=== PATIENT | female | born 1950 | race Native Hawaiian/Other Pacific Islander ===

== ENCOUNTER → 2018-09-29 09:08 | Outpatient (CLI) | payer MEDICARE, SELFPAY ==
--- NOTE | 2018-09-29 09:16 | XR_ITS ---
XR DEXA axial skeleton COMPARISON: None HISTORY: The patient is postmenopausal TECHNIQUE: DEXA scanning lumbar spine and bilateral hips FINDINGS: The average BMD L1-L4 is 0.731 g/sq cm and the T score is -3.7. The total BMD right hip is 0.664 g centimeters squared with a T score of -2.7. The right femoral neck is 0.607 g/sq cm the T score -3.1. The total BMD left hip is 0.690 g centimeters square with T score -2.5. The left femoral neck is 0.625 g/sq cm the T score of -2.0. IMPRESSION: T score is in the osteoporosis range for lumbar spine and bilateral hips and since is the baseline study and in view of the T score numbers recommend the patient return for follow-up DEXA scan in one year to assess response to treatment
== END ==
PROVIDERS: PCP Family Medicine; Visit Provider Family Medicine
DX: M81.0 Age-related osteoporosis without current pathological fracture (principal)
CPT/HCPCS: 77080

== ENCOUNTER 2018-10-10 09:30 | Outpatient (CLI) | payer MEDICARE, SELFPAY ==
[2018-10-10 09:40] VITALS: BP 131/90; PULSE 87; RESP 18; TEMP 36.6; O2SAT 98
[2018-10-10 10:10] VITALS: BP 132/75; PULSE 72; RESP 18; TEMP 36.7; O2SAT 98
== END 2018-10-10 10:10 | disposition home or self-care (01) ==
LOC: INF 09:31
PROVIDERS: Visit Provider Family Medicine
DX: M81.0 Age-related osteoporosis without current pathological fracture (principal)
CPT/HCPCS: 96372; J0897

== ENCOUNTER 2019-04-11 09:43 | Outpatient (CLI) | payer MEDICARE, SELFPAY ==
[2019-04-11 09:50] VITALS: BP 141/70; PULSE 75; RESP 18; O2SAT 99
== END 2019-04-11 09:50 | disposition home or self-care (01) ==
LOC: INF 09:43
PROVIDERS: Visit Provider Nurse Practitioner Family
DX: M81.0 Age-related osteoporosis without current pathological fracture (principal)
CPT/HCPCS: 96372; J0897

== ENCOUNTER 2019-10-15 10:07 | Outpatient (CLI) | payer MEDICARE, SELFPAY ==
[2019-10-15 10:33] VITALS: BP 122/69; PULSE 68; RESP 18; TEMP 36.4; O2SAT 99
== END 2019-10-15 11:03 | disposition home or self-care (01) ==
LOC: INF 10:07
PROVIDERS: Visit Provider Nurse Practitioner Family
DX: M81.0 Age-related osteoporosis without current pathological fracture (principal)
CPT/HCPCS: 96372; J0897

== ENCOUNTER → 2019-11-30 11:50 | Outpatient (CLI) | payer MEDICARE, SELFPAY ==
--- NOTE | 2019-11-30 11:58 | XR_ITS ---
PROCEDURE: XR HIP RT 2-3V W/PELVIS CLINICAL INDICATION: PAIN IN R HIP Recent fall COMPARISON: CT ABDPELW/O CT ABD PELVIS W/O CONTRAST from 08/05/2014 FINDINGS: No fracture or dislocation is evident. No significant degenerative change. No lytic or blastic change. Unremarkable soft tissues. The SI joints and symphysis pubis are normal. IMPRESSION: No acute findings. Dictated Dr. Sumit Gomez MD 11/30/2019 12:44 Dr. Sumit Woodson MD in [place] 11/30/2019 12:44
== END ==
PROVIDERS: PCP Family Medicine; Visit Provider Family Medicine
DX: M25.551 Pain in right hip (principal)
CPT/HCPCS: 73502

== ENCOUNTER → 2019-12-10 10:21 | Outpatient (CLI) | payer MEDICARE, SELFPAY ==
--- NOTE | 2019-12-10 10:27 | XR_ITS ---
PROCEDURE: XR DEXA AXIAL SKELETON CLINICAL HISTORY: OSTEOPROSIS COMPARISON: CR DXA Exam from 09/29/2018 FINDINGS: The right hip BMD is 0.577 with a t-score of -2.5. The left hip BMD is 0.552 with a t-score of -2.7. The lumbar spine BMD is 0.714 with a t-score of -3.0. Previously the left femoral neck T-score was -3.0, right femoral neck T-score -3.1 and L1-L4 T-score -3.7. The bone mineral density has somewhat improved compared to the previous exam IMPRESSION: This patient is considered osteoporotic according to the World Health Organization criteria. Fracture risk is high. Treatment is advised. Based on these results of follow-up exam is recommended in 1 year Dictated by: Mark Cartwright MD 12/11/2019 09:05 Mark Cartwright MD in [place] 12/11/2019 09:05
== END ==
PROVIDERS: PCP Family Medicine; Visit Provider Family Medicine
DX: M81.0 Age-related osteoporosis without current pathological fracture (principal)
CPT/HCPCS: 77080

== ENCOUNTER 2020-04-21 10:15 | Outpatient (CLI) | payer MEDICARE, SELFPAY ==
[2020-04-21 10:23] VITALS: BP 122/61; PULSE 76; RESP 18; TEMP 36.6; O2SAT 100
== END 2020-04-21 10:36 | disposition home or self-care (01) ==
LOC: INF 10:15
PROVIDERS: Visit Provider Nurse Practitioner Family
DX: M81.0 Age-related osteoporosis without current pathological fracture (principal)
CPT/HCPCS: 96372; J0897

== ENCOUNTER → 2020-10-20 08:20 | Outpatient (CLI) | payer MEDICARE, SELFPAY ==
--- NOTE | 2020-10-20 08:24 | CT_ITS ---
PROCEDURE: CT ABDOMEN PELVIS WO CON CLINICAL INDICATION: RLQ PAIN More pain after eating COMPARISON: CT ABDPELW/O CT ABD PELVIS W/O CONTRAST from 08/05/2014 TECHNIQUE: Axial images obtained with sagittal and coronal reformats. All CT scans at the facility use one or more dose reduction, viz: automated exposure control, ma/kV adjustment per patient size (including targeted exams where dose is matched to indication, i.e. head), or iterative reconstruction technique. FINDINGS: LOWER THORAX: No acute finding ABDOMEN & PELVIS: Hyperdensity noted in the region of the gallbladder fossa and could represent a skate stones from the prior cholecystectomy or postsurgical material. Dystrophic calcification is also consideration. This is not significantly changed. No focal liver lesion is evident. The liver margin is slightly irregular raising the question mild cirrhosis. Please correlate with history and laboratory values. No focal liver lesion is apparent. The spleen and adrenal glands and pancreas have unremarkable unenhanced appearance. No renal or ureteral calculi. No intestinal obstruction or free air. There is a mild amount of retained colonic feces throughout the colon. The appendix is mildly prominent at 7 mm however, this is not significantly changed. No evidence of stranding of the periappendiceal fat. There is colonic diverticulosis of the descending and sigmoid colon. No evidence of diverticulitis. No obvious pelvic mass or abnormal fluid collection. There is been development of wedge compression changes involving the L2 vertebral body with loss of height anteriorly of approximately 40 percent with spurring of the vertebral body anteriorly and inferiorly and minimal retropulsion/spurring of the posterior inferior aspect of the L2 vertebral body by 3 mm. IMPRESSION: 1. Prior cholecystectomy with hyperdensity in the gallbladder fossa unchanged. 2. Minimal irregularity of the liver margin anteriorly raising the question of mild or early cirrhosis. 3. No evidence of appendicitis. 4. Colonic diverticulosis without diverticulitis. 5. Interval development of compression change of L2 Dictated by: Mark Cartwright MD 10/21/2020 10:22 Mark Cartwright MD in [place] 10/21/2020 10:22
== END ==
PROVIDERS: PCP Family Medicine; Visit Provider Family Medicine
DX: R10.31 Right lower quadrant pain (principal)
CPT/HCPCS: 74176

== ENCOUNTER 2020-10-20 08:45 | Outpatient (CLI) | payer MEDICARE, SELFPAY ==
[2020-10-20 08:59] VITALS: BP 122/71; PULSE 68; RESP 18; TEMP 36.6; O2SAT 99
== END 2020-10-20 09:20 | disposition home or self-care (01) ==
LOC: INF 08:45
PROVIDERS: Visit Provider Family Medicine
DX: M81.0 Age-related osteoporosis without current pathological fracture (principal); R10.31 Right lower quadrant pain
CPT/HCPCS: 74176; 96372; J0897

== ENCOUNTER 2021-04-27 09:05 | Outpatient (CLI) | payer MEDICARE, SELFPAY ==
[2021-04-27 09:20] VITALS: BP 142/82; PULSE 88; RESP 16; TEMP 36.6; O2SAT 100
== END 2021-04-27 09:42 | disposition home or self-care (01) ==
LOC: INF 09:07
PROVIDERS: PCP Family Medicine; Visit Provider Family Medicine
DX: M81.0 Age-related osteoporosis without current pathological fracture (principal)
CPT/HCPCS: 96372; J0897

== ENCOUNTER 2021-11-02 08:35 | Outpatient (CLI) | payer MEDICARE, SELFPAY ==
[2021-11-02 08:43] VITALS: BP 134/74; PULSE 71; RESP 18; TEMP 37; O2SAT 99
== END 2021-11-02 08:50 | disposition home or self-care (01) ==
LOC: INF 08:36
PROVIDERS: PCP Family Medicine; Visit Provider Family Medicine
DX: M81.0 Age-related osteoporosis without current pathological fracture (principal)
CPT/HCPCS: 96372; J0897

== ENCOUNTER 2022-02-25 23:04 | Inpatient (IN) | payer MEDICARE, SELFPAY ==
[2022-02-25 23:04] VITALS: BP 167/79; PULSE 137; RESP 22; TEMP 36.5; O2SAT 99; BMI 20.3
[2022-02-25 23:15] LABS: Basophils # 0.1 K/mm3 (0-0.2); Basophils % 0.4 % (0.1-2.0); Eosinophils % 0.2 % (0.1-12.0); Hematocrit 53.7 % (37.0-47.0); Lymphocytes # 0.9 K/mm3 (0.7-4.5); Lymphocytes % 4.4 % (10-50); Mean Corpuscular HGB Conc 29.8 g/dL (31.8-35.4); Mean Corpuscular Hemoglobin 29.7 pg (27.0-31.2); Mean Corpuscular Volume 99.6 fl (81-99); Mean Platelet Volume 9.9 fl (7.4-10.4); Monocytes # 0.9 K/mm3 (0.1-1.0); Monocytes % 4.4 % (1.7-9.3); Neutrophils # 17.9 K/mm3 (1.8-7.8); Neutrophils % 90.6 % (37.0-80.0); Platelet Count 316 K/mm3 (142-424); Red Blood Count 5.39 M/mm3 (4.20-5.40); White Blood Count 19.7 K/mm3 (4.8-10.8)
[2022-02-25 23:16] LABS: Chloride 108 mmol/L (98-107)
--- NOTE | 2022-02-25 23:16 | HMH.EDGENADL ---
Discharge Plan Disposition Patient Disposition: Admitted as Observation Chief Complaint: Hyper/Hypoglycemia Clinical Impressions Clinical Impression: DKA (diabetic ketoacidosis), Sepsis Discharge ED Provider: Taylor Murdock Adult HPI General Chief complaint: Hyper/Hypoglycemia Stated complaint: Hyperglycemia Time Seen by Provider: 02/25/22 23:04 Mode of Arrival: EMS Source of Information: Patient and EMS Limitations: No Limitations Description of Symptoms (Recalled from ER Triage Doc. by RN): EMs called out to check pt;s sugar. states pt been n/v and losing weight for 2 weeks and seen pcp today and diganosed with diabetes and started new meds History of Present Illness HPI narrative: Mrs. Ibanez is a 71-year-old female past medical history for newly diagnosed T2DM presenting to the emergency department for altered mental status and lethargy. History provided by patient's at bedside. Patient has had 2 weeks of nausea, vomiting and weight loss. Patient was evaluated by her primary care physician earlier today and diagnosed with new onset diabetes. Patient was initiated on glipizide/metformin as well as Zofran. Following administration of these medications patient reportedly had hallucinations and worsening confusion prompting EMS to be called. EMS arrived to scene and reported patient sure 500+. Patient was hemodynamically stable and transferred to [facility] for further evaluation. On arrival patient is alert and oriented to name and place but has generalized weakness and appears lethargic. Patient is moving all extremities. She reports neck as well as abdominal pain. MD complaint: lethargy and confusion Related Data Home Medications Medication Instructions Recorded Confirmed calcium carbonate 500 mg calcium 500 mg PO TID Supplement 10/10/18 02/26/22 (1,250 mg) tablet glucosamine sulfate 2KCl 1,000 mg 1,000 mg PO DAILY Supplement 10/10/18 02/26/22 tablet aomymwohwpgr-Ke-hkxh-minerals 1 each PO DAILY Supplement 10/15/19 02/26/22 glipizide 2.5 mg-metformin 250 mg 1 tab PO BID Diabetes 02/26/22 02/26/22 tablet mirtazapine 15 mg tablet 15 mg PO HS sleep 02/26/22 02/26/22 omeprazole 40 mg capsule,delayed 40 mg PO DAILY GERD 02/26/22 02/26/22 release Allergies Allergy/AdvReac Type Severity Reaction Status Date / Time No Known Allergies Allergy Verified 10/20/20 09:28 [facility] Social History Smoking Status: Never smoker alcohol intake: never current occupational status: unemployed Travel in the last 8 weeks: None household members: family housing: house caffeine: Yes ROS Obtained: Yes All systems reviewed & no additional complaints except as documented Physical Exam General General appearance: alert, lethargic and obtunded Head Head exam: atraumatic and normal inspection Eye Eye exam: Present normal appearance and EOMI ENT ENT exam: Present normal exam, normal oropharynx and mucous membranes moist Neck Neck exam: Present normal inspection and full ROM Chest Chest inspection: Present normal inspection and symmetric chest wall rise Respiratory Respiratory exam: Present normal lung sounds bilaterally Cardiovascular Cardiovascular exam: Present regular rate and tachycardia Abdominal Exam Abdominal exam: Present soft and tenderness Extremities Exam Extremities exam: Present normal inspection and full ROM Back Exam Back exam: Present normal inspection Neurological Exam Neurological exam: Present alert, oriented X3 and other (Generalized weakness) Skin Skin exam: Present warm and normal color Medical Decision Making Medical Records Medical records reviewed: Yes I reviewed the patient's medical records. Chris Inquiry Pt receiving controlled substance: No Vital Signs: 02/25/22 23:04 02/25/22 23:58 02/26/22 00:00 Temperature 97.7 F Temperature Source Oral Pulse Rate Pulse Rate [Ri
--- NOTE | 2022-02-25 23:16 | PC.NURSE ---
RT at to obtain ABG
[2022-02-25 23:17] LABS: Coronavirus 19, PCR Not Detected (NotDetected); Influenza A, PCR Not Detected (NotDetected); Influenza B, PCR Not Detected (NotDetected)
[2022-02-25 23:17] LABS: Potassium 4.9 mmoL/L (3.5-5.1); Sodium 147 mmol/L (136-145)
[2022-02-25 23:19] LABS: Alanine Aminotransferase 28 U/L (12-78); Aspartate Amino Transferase 33 U/L (14-36); Blood Urea Nitrogen 21 mg/dl (7-17); Creatinine Clearance Estimated 36 mL/min (50-200); Estimated Glomerular Filt Rate 40 ml/min (>60); GFR (African American) 49 ML/MIN (>60)
[2022-02-25 23:20] LABS: Albumin Level 5.1 g/dl (3.5-5.0); Albumin/Globulin Ratio 1.4 (1.1-1.8); Alkaline Phosphatase 140 U/L (38-126); Bilirubin,Total 0.6 mg/dl (0.2-1.3); Calcium 10.3 mg/dl (8.4-10.2); Globulin 3.6 g/dL (1.3-3.2); Total Protein,Serum 8.7 g/dl (6.3-8.2)
[2022-02-25 23:21] LABS: Acetone, Serum (Rapid) Small (None Detect); MANUAL DIFFERENTIAL MANUAL DIFFERENTIAL (MANUAL DIFF)
[2022-02-25 23:25] LABS: ABG Base Excess -27.1 mmol/L (-2.4-2.3); ABG HCO3 3.3 mmhg (22.0-26.0); ABG Oxygen Saturation 98 % (90-100); ABG TCO2 3.6 mmhg (23-27)
[2022-02-25 23:26] LABS: Allen's Test Acceptable; Oxygen 21 %; Source Right Radial
[2022-02-25 23:27] LABS: ABG PH 7.05 mmol/L (7.35-7.45)
[2022-02-25 23:32] LABS: Troponin I 0.02 ng/ml (0.00-0.034)
[2022-02-25 23:40] LABS: Glucose 615 mg/dl (74-100)
--- NOTE | 2022-02-25 23:42 | PC.NURSE ---
notified of critical glucose 616
[2022-02-25 23:50] LABS: Anion Gap 38.9 mEq/L (5-15); Carbon Dioxide < 5 mmol/L (22.0-30.0)
[2022-02-25 23:51] LABS: Thyroid Stimulating Hormone 2.17 uIU/mL (0.465-4.68)
--- NOTE | 2022-02-25 23:52 | PC.NURSE ---
Critical lab of CO2 <[address] Murdock
[2022-02-25 23:58] VITALS: BP 152/61; RESP 34; O2SAT 94
[2022-02-25 23:59] LABS: Microscopic, Urine URINE MICROSCOPIC (MICROSCOPIC)
[2022-02-26] VITALS (42 sets, daily range): BP systolic 54–155; BP diastolic 36–81; PULSE 76–148; RESP 12–33; TEMP 36.5–37.1; O2SAT 93–100; BMI 18.7
--- NOTE | 2022-02-26 | CT_ITS ---
PROCEDURE INFORMATION: Exam: CT Abdomen And Pelvis With Contrast Exam date and time: 02/26/2022 12:18 AM Age: 71 years old Clinical indication: Vomiting; Additional info: Lack of appetitie emesis TECHNIQUE: Imaging protocol: Computed tomography of the abdomen and pelvis with contrast. Radiation optimization: All CT scans at this facility use at least one of these dose optimization techniques: automated exposure control; mA and/or kV adjustment per patient size (includes targeted exams where dose is matched to clinical indication); or iterative reconstruction. Contrast material: ISOVUE; Contrast volume: 75 ml; Contrast route: IV; COMPARISON: CT ABDOMEN PELVIS WO CON 10/20/2020 8:29 AM FINDINGS: Liver: Normal. Gallbladder and bile ducts: Gallbladder surgically absent. Persistent hyperdense material within the gallbladder fossa, possibly postsurgical material versus retained calculi, unchanged. Pancreas: Normal. Spleen: Normal. Adrenal glands: Normal. No mass. Kidneys and ureters: Normal. Stomach and bowel: Colonic diverticulosis. Moderate amount of stool throughout the colon, suggesting constipation. No obstruction. Mild wall thickening of the gastric body and antrum, with minimal adjacent fat stranding, possibly mild gastritis. Appendix: Appendix normal. Intraperitoneal space: Unremarkable. No free air. No significant fluid collection. Vasculature: Unremarkable. No abdominal aortic aneurysm. Lymph nodes: Unremarkable. No enlarged lymph nodes. Urinary bladder: Urinary bladder decompressed by [place] catheter. Reproductive: Unremarkable as visualized. Bones/joints: Sacral Tarlov cysts. Soft tissues: Normal. IMPRESSION: 1. Moderate amount of stool throughout the colon, suggesting constipation. No obstruction. 2. Mild wall thickening of the gastric body and antrum, with minimal adjacent fat stranding, possibly mild gastritis.
--- NOTE | 2022-02-26 | CT_ITS ---
PROCEDURE INFORMATION: Exam: CT Head Without Contrast Exam date and time: 02/26/2022 12:05 AM Age: 71 years old Clinical indication: Altered mental status/memory loss; Other: Hallucinations TECHNIQUE: Imaging protocol: Computed tomography of the head without contrast. Radiation optimization: All CT scans at this facility use at least one of these dose optimization techniques: automated exposure control; mA and/or kV adjustment per patient size (includes targeted exams where dose is matched to clinical indication); or iterative reconstruction. COMPARISON: No relevant prior studies available. FINDINGS: Brain: Mild diffuse cerebral atrophy is consistent with this patient's age. The visualized basilar cisterns are patent. The cortical/white matter interfaces are preserved throughout the brain. There is no evidence of mass, mass effect or midline shift. There is no evidence of acute hemorrhage within the brain parenchyma or the subarachnoid space. There is mild heterogeneity and patchy areas of bilateral decreased attenuation of the white matter consistent with chronic white matter ischemic change. Cerebral ventricles: No ventriculomegaly. Paranasal sinuses: The visualized portions of the sinuses are clear. Mastoid air cells: The mastoid sinuses are normal. Orbital cavities: The orbits are normal. Bones/joints: Postsurgical hardware streak artifact within the maxilla limits evaluation of adjacent structures. Soft tissues: No significant soft tissue edema. IMPRESSION: No acute intracranial abnormality.
--- NOTE | 2022-02-26 | CT_ITS ---
PROCEDURE INFORMATION: Exam: CT Chest With Contrast; Diagnostic Exam date and time: 02/26/2022 12:18 AM Age: 71 years old Clinical indication: Condition or disease; Other: Hyperglycemia, leukocytosis TECHNIQUE: Imaging protocol: Diagnostic computed tomography of the chest with contrast. Radiation optimization: All CT scans at this facility use at least one of these dose optimization techniques: automated exposure control; mA and/or kV adjustment per patient size (includes targeted exams where dose is matched to clinical indication); or iterative reconstruction. Contrast material: ISOVUE; Contrast volume: 75 ml; Contrast route: IV; COMPARISON: CT ABDOMEN PELVIS WO CON 10/20/2020 8:29 AM FINDINGS: Lungs: Calcified granuloma within the left upper lobe. Pleural spaces: Unremarkable. No pneumothorax. No pleural effusion. Heart: Mild three-vessel coronary artery atherosclerotic disease. Lymph nodes: No pathologically-enlarged lymph nodes. Vasculature: Atherosclerotic disease of the thoracic aorta, without aneurysm or dissection. Diaphragm: Small-sized hiatal hernia. Bones/joints: Multilevel thoracic spine degenerative disc space narrowing and osteophyte formation. Soft tissues: Normal. IMPRESSION: No acute thoracic abnormality.
[2022-02-26 00:02] LABS: Lactic Acid 4.8 mmol/L (0.7-2.1)
--- NOTE | 2022-02-26 00:02 | PC.NURSE ---
notified of lactic 4.8
[2022-02-26 00:06] LABS: Appearance,Urine CLEAR (Clear); Bilirubin,Urine Negative (Negative); Blood, Urine 2+ (Negative); Color,Urine YELLOW (Yellow); Glucose,Urine (UA) 3+ (Negative); Ketones,Urine 3+ (Negative); Leukocyte Esterase,Urine Negative (Negative); Nitrate,Urine Negative (Negative); Protein,Urine 2+ (Negative); Specific Gravity, Urine >= 1.030 (1.005-1.030); Urobilinogen,Urine 0.2 EU/dl (0.2)
[2022-02-26 00:14] LABS: Barbiturates Screen,Urine Negative ng/ml (<200)
[2022-02-26 00:15] LABS: Benzodiazepines Screen,Urine Negative ng/ml (<200)
--- NOTE | 2022-02-26 00:15 | PC.NURSE ---
Pt going to scan at this time
[2022-02-26 00:16] LABS: Amphetamine/Metha Screen,Urine Negative ng/ml (<1000); Cannabinoid Screen,Urine Negative ng/ml (<50)
[2022-02-26 00:17] LABS: Cocaine Screen,Urine Negative ng/ml (<300)
[2022-02-26 00:18] LABS: Methadone Screen,Urine Negative ng/ml (<300); Opiate Screen,Urine Negative ng/ml (<300)
[2022-02-26 00:19] LABS: Phencyclidine Screen,Urine Negative ng/ml (<25)
[2022-02-26 00:43] LABS: Bacteria,Urine Trace /lpf; Squamous Epithelial Cell,Urine Occasional #/hpf (0-5); WBC,Urine Occasional #/hpf (0-3)
[2022-02-26 00:49] LABS: Acanthocytes 1+; Lymphocytes % 11 % (10-50); Macrocytosis 1+; Neutrophils % 89 % (42-76); Platelet Estimate Normal; Total Cells Counted 100
--- NOTE | 2022-02-26 01:15 | ECG_ITS ---
APPROVED REPORT Exam: Resting ECG HR:134 bpm ECG Measurements Heart Rate 134 AXES WY 152 P 82 QRSd 62 QRS 42 QT 331 T 73 QTc 410 Conclusion SINUS TACHYCARDIA LOW QRS VOLTAGE [QRS DEFLECTION < 0.5/1.0 mV IN LIMB/CHEST LEADS] NONSPECIFIC ST & T-WAVE ABNORMALITY ABNORMAL ECG UNCONFIRMED REPORT Electronically signed by : Golden Gonsales MD 02/26/2022 13:27:53
[2022-02-26 01:22] LABS: POC Glucose,Bedside 427 (70-110)
--- NOTE | 2022-02-26 01:22 | PC.NURSE ---
Mouth swabs used to perform oral care for pt
--- NOTE | 2022-02-26 01:26 | PC.NURSE ---
pt updated at bedside and made aware of pt condition
--- NOTE | 2022-02-26 01:44 | PC.NURSE ---
Dr. Murdock speaking with Dr. Shahid
--- NOTE | 2022-02-26 02:06 | PC.NURSE ---
Called RT for repeat ABG
[2022-02-26 02:21] LABS: ABG Base Excess -25.6 mmol/L (-2.4-2.3); ABG HCO3 4.7 mmhg (22.0-26.0); ABG Oxygen Saturation 99 % (90-100); ABG PO2 128.5 mmhg (80-100); ABG TCO2 5.2 mmhg (23-27); Allen's Test Acceptable; Source Right Radial
[2022-02-26 02:22] LABS: ABG PCO2 16.6 mmhg (35.0-45.0); ABG PH 7.07 mmol/L (7.35-7.45)
--- NOTE | 2022-02-26 02:39 | PC.NURSE ---
epi up to 5mccg bp 52/28 map 36
[2022-02-26 02:48] LABS: Troponin I 0.03 ng/ml (0.00-0.034)
[2022-02-26 03:24] LABS: POC Glucose,Bedside 363 (70-110)
--- NOTE | 2022-02-26 03:34 | ECG_ITS ---
APPROVED REPORT Exam: Resting ECG HR:135 bpm ECG Measurements Heart Rate [address] 134 P 73 QRSd 73 QRS 56 QT 331 T 81 QTc 410 Conclusion SINUS TACHYCARDIA NONSPECIFIC ST & T-WAVE ABNORMALITY ABNORMAL RHYTHM ECG UNCONFIRMED REPORT Electronically signed by : Golden Gonsales MD 02/27/2022 08:43:01
[2022-02-26 03:46] LABS: Reflex Lactic Add Lactic Reflex
--- NOTE | 2022-02-26 03:51 | PC.NURSE ---
PT ARRIVED WITH MAIRAER @ 4600
[2022-02-26 03:55] LABS: Chloride 119 mmol/L (98-107)
[2022-02-26 03:59] LABS: Blood Urea Nitrogen 20 mg/dl (7-17); Creatinine Clearance Estimated 47 mL/min (50-200); Estimated Glomerular Filt Rate 62 ml/min (>60); GFR (African American) 74 ML/MIN (>60); Glucose 341 mg/dl (74-100)
--- NOTE | 2022-02-26 04:01 | PC.NURSE ---
titrated to 4mcg bp 137/71 map 93
--- NOTE | 2022-02-26 04:15 | PC.NURSE ---
pt transported from er via stretcher accompanied by rn and pct with monitors in place, pt tolerated well, no skin issues noted, epinephrine drip infusing at 4mcg/min in right ac IV line, insulin drip infusing at 6 units/hr to left wrist IV, 1000ml of NS bolus infusing to gravity to left AC iv, pt responsive to name and able to speak name, pt is lao speaking at times, no acute distress at this time, f/c to bsd with clear yellow urine noted.
[2022-02-26 04:23] LABS: Carbon Dioxide 8 mmol/L (22.0-30.0); Sodium 154 mmol/L (136-145)
--- NOTE | 2022-02-26 04:30 | PC.NURSE ---
Difficult to complete admission d/t patients altered mental status at this time. Most of the hx was obtained from ED staff by the , who is not present on admission. Notified primary RN
--- NOTE | 2022-02-26 04:37 | PC.NURSE ---
0437 critical labs called to Dr. Grey lactic 5.0, sodium 154, potassium 3.0, co2 8.0; note orders to give potassium with next saline bag bolus, verified with pharmacy potassium cannot be ran as bolus, ns w/40meq of kcl started per insulin protocol at 125ml/hr per telephone orders dr grey repeated and verified
[2022-02-26 05:30] LABS: Reflex Lactic (2 hrs) Add Lactic Reflex
[2022-02-26 06:38] LABS: Lactic Acid Follow up (RFLX 2) 5.4 mmol/L (0.7-2.1)
--- NOTE | 2022-02-26 07:02 | PC.NURSE ---
epi increased to 2mcg/min for b/p 88/48
[2022-02-26 08:12] LABS: Acetone, Serum (Rapid) Large (None Detect)
--- NOTE | 2022-02-26 08:19 | EXP.PHA.CONS ---
Pharmacy Consult Date: 02/26/22 Time: 08:19 Referring provider: DR. CROCKER Reason for Consult:: VANCOMYCIN DOSING Allergies Allergy/AdvReac Type Severity Reaction Status Date / Time No Known Allergies Allergy Verified 02/26/22 06:11 Home Medications Medication Instructions Recorded Confirmed Type calcium carbonate 500 mg calcium 500 mg PO TID Supplement 10/10/18 02/26/22 History (1,250 mg) tablet glucosamine sulfate 2KCl 1,000 mg 1,000 mg PO DAILY Supplement 10/10/18 02/26/22 History tablet tsmqwyqbsbzk-Ja-fzkb-minerals 1 each PO DAILY Supplement 10/15/19 02/26/22 History glipizide 2.5 mg-metformin 250 mg 1 tab PO BID Diabetes 02/26/22 02/26/22 History tablet mirtazapine 15 mg tablet 15 mg PO HS sleep 02/26/22 02/26/22 History omeprazole 40 mg capsule,delayed 40 mg PO DAILY GERD 02/26/22 02/26/22 History release New Prescriptions to Start Prescriptions: Height: 1.7 m Weight: 54.2 kg Laboratory Results:: Laboratory Results - last 24 hr 02/25/22 23:06: WBC 19.7 H, RBC 5.39, Hgb 16.0, Hct 53.7 H, MCV 99.6 H, MCH 29.7, MCHC 29.8 L, RDW 15.0, Plt Count 316, MPV 9.9, Neut % (Auto) 90.6 H, Lymph % (Auto) 4.4 L, [place] % (Auto) 4.4, Eos % (Auto) 0.2, Baso % (Auto) 0.4, Neut # (Auto) 17.9 H, Lymph # (Auto) 0.9, [place] # (Auto) 0.9, Eos # (Auto) 0.0, Baso # (Auto) 0.1, Total Counted 100, Neutrophils % (Manual) 89 H, Lymphocytes % (Manual) 11, Platelet Estimate Normal, RBC Morphology Not Reportable, Macrocytosis 1+, Acanthocytes (Spur) 1+ 02/25/22 23:06: Sodium 147 H, Potassium 4.9, Chloride 108 H, Carbon Dioxide < 5 L*, Anion Gap 38.9 H, BUN 21 H, Creatinine 1.30 H, Estimated Creat Clear 36, Estimated GFR 40 L, Est GFR ( Amer) 49 L, Glucose 615 H*, Calcium 10.3 H, Total Bilirubin 0.6, AST 33, ALT 28, Alkaline Phosphatase 140 H, Troponin I 0.02, Total Protein 8.7 H, Albumin 5.1 H, Globulin 3.6 H, Albumin/Globulin Ratio 1.4, TSH 2.17, Acetone Level Small 02/25/22 23:07: SARS-CoV-2 (PCR) Not detected, Influenza A Untype (PCR) Not detected, Influenza Type B (PCR) Not detected 02/25/22 23:09: Specimen Source Right radial, O2 % 21, ABG pH 7.05 L*, ABG pCO2 12.0 L, ABG pO2 129.0 H, ABG HCO3 3.3 L, ABG Total CO2 3.6 L, ABG O2 Saturation 98, ABG Base Excess -27.1 L, Mark Test Acceptable 02/25/22 23:45: Lactate 4.8 H 02/25/22 23:54: Urine Color Yellow, Urine Appearance Clear, Urine pH 6.0, Ur Specific [place] >= 1.030, Urine Protein 2+, Urine Glucose (UA) 3+, Urine Ketones 3+, Urine Blood 2+, Urine Nitrate Negative, Urine Bilirubin Negative, Urine Urobilinogen 0.2, Ur Leukocyte Esterase Negative, Urine RBC 3-5, Urine WBC Occasional, Ur Squamous Epith Cells Occasional, Urine Bacteria Trace 02/25/22 23:54: Urine Opiates Screen Negative, Urine Methadone Screen Negative, Ur Barbituates Screen Negative, Ur Phencyclidine Scrn Negative, Ur Amphetamines Screen Negative, U Benzodiazepines Scrn Negative, Urine Cocaine Screen Negative, U Marijuana (THC) Screen Negative 02/26/22 01:08: POC Glucose 427 H* 02/26/22 02:06: Specimen Source Right radial, O2 % 1lpm, ABG pH 7.07 L*, ABG pCO2 16.6 L, ABG pO2 128.5 H, ABG HCO3 4.7 L, ABG Total CO2 5.2 L, ABG O2 Saturation 99, ABG Base Excess -25.6 L, Mark Test Acceptable 02/26/22 02:22: Troponin I 0.03 02/26/22 03:16: POC Glucose 363 H* 02/26/22 03:42: Sodium 154 H*, Potassium 3.0 L D, Chloride 119 H, Carbon Dioxide 8 L* D, Anion Gap 30.0 H, BUN 20 H, Creatinine 0.90 D, Estimated Creat Clear 47, Estimated GFR 62, Est GFR ( Amer) 74 D, Glucose 341 H D, Calcium 8.0 L 02/26/22 03:42: Lactate 5.0 H 02/26/22 05:45: Acetone Level Large 02/26/22 05:45: Lactate 5.4 H Medical History: Medical History (Updated 02/26/22 @ 06:11 by Jolanta Vasquez RN) Diabetes mellitus, type 2 Assessment and Plan Assessment and plan all Dx Assessment and Plan for all problems:: Pharmacokinetic dosing service Age: 71 yo Serum creatinine: 1 mg/dL Height: 66.9 Inches Weight (kg): 54.2 Assessme
[2022-02-26 08:21] LABS: Anion Gap 17.2 mEq/L (5-15); Blood Urea Nitrogen 19 mg/dl (7-17); Calcium 7.9 mg/dl (8.4-10.2); Carbon Dioxide 16 mmol/L (22.0-30.0); Chloride 125 mmol/L (98-107); Creatinine Clearance Estimated 44 mL/min (50-200); Estimated Glomerular Filt Rate 82 ml/min (>60); GFR (African American) 100 ML/MIN (>60); Glucose 186 mg/dl (74-100); Potassium 3.2 mmoL/L (3.5-5.1)
--- NOTE | 2022-02-26 08:23 | PC.NURSE ---
0700 critical lactate was called to dr grey 5.4, no new orders noted at this time
[2022-02-26 08:28] LABS: Troponin I 0.04 ng/ml (0.00-0.034)
[2022-02-26 08:29] LABS: Sodium 155 mmol/L (136-145)
--- NOTE | 2022-02-26 08:36 | EXP.HP ---
History of Present Illness *Admission Date: 02/26/22 *Reason for visit:: Vomiting/Altered mental status *History of present illness: 71 year old patient of [facility], who saw Dr. Bran in the office earlier this week and was diagnosed with diabetes. Her blood sugar was 500 in the office that day and she was prescribed Glipizide and Metformin. She states she took one dose and started vomiting along with hallucinating and became very confused. She has had a 2 week history of nausea/vomiting and weight loss. History was obtained from ER note/patient's . [facility] Medical History (Updated 02/26/22 @ 08:52 by Iraj Shahid MD) Diabetes mellitus, type 2 Heartburn Osteoporosis Family History No significant family history Social History (Updated 02/26/22 @ 06:11 by Jolanta Vasquez, [facility]) Smoking Status: Never smoker alcohol intake: never current occupational status: unemployed Travel in the last 8 weeks: None household members: significant other and family housing: house marital status: caffeine: Yes Review of Systems Review of Systems Review of systems:: unable to obtain Meds Home Medications and Allergies Home Medications Medication Instructions Recorded Confirmed Type calcium carbonate 500 mg calcium 500 mg PO TID Supplement 10/10/18 02/26/22 History (1,250 mg) tablet glucosamine sulfate 2KCl 1,000 mg 1,000 mg PO DAILY Supplement 10/10/18 02/26/22 History tablet ridhcxaiecrr-Fg-dkhw-minerals 1 each PO DAILY Supplement 10/15/19 02/26/22 History glipizide 2.5 mg-metformin 250 mg 1 tab PO BID Diabetes 02/26/22 02/26/22 History tablet mirtazapine 15 mg tablet 15 mg PO HS sleep 02/26/22 02/26/22 History omeprazole 40 mg capsule,delayed 40 mg PO DAILY GERD 02/26/22 02/26/22 History release New Prescriptions to Start Prescriptions: Allergies Allergy/AdvReac Type Severity Reaction Status Date / Time No Known Allergies Allergy Verified 02/26/22 06:11 Exam Data for Last 24 hours Vital signs and Labs for Last 24 Hours: Temp Pulse Resp BP Pulse Ox 98.4 F 103 H 12 105/59 L 100 02/26/22 05:14 02/26/22 07:15 02/26/22 07:15 02/26/22 07:15 02/26/22 07:15 Laboratory Results - last 24 hr 02/25/22 23:06: WBC 19.7 H, RBC 5.39, Hgb 16.0, Hct 53.7 H, MCV 99.6 H, MCH 29.7, MCHC 29.8 L, RDW 15.0, Plt Count 316, MPV 9.9, Neut % (Auto) 90.6 H, Lymph % (Auto) 4.4 L, [place] % (Auto) 4.4, Eos % (Auto) 0.2, Baso % (Auto) 0.4, Neut # (Auto) 17.9 H, Lymph # (Auto) 0.9, [place] # (Auto) 0.9, Eos # (Auto) 0.0, Baso # (Auto) 0.1, Total Counted 100, Neutrophils % (Manual) 89 H, Lymphocytes % (Manual) 11, Platelet Estimate Normal, RBC Morphology Not Reportable, Macrocytosis 1+, Acanthocytes (Spur) 1+ 02/25/22 23:06: Sodium 147 H, Potassium 4.9, Chloride 108 H, Carbon Dioxide < 5 L*, Anion Gap 38.9 H, BUN 21 H, Creatinine 1.30 H, Estimated Creat Clear 36, Estimated GFR 40 L, Est GFR ( Amer) 49 L, Glucose 615 H*, Calcium 10.3 H, Total Bilirubin 0.6, AST 33, ALT 28, Alkaline Phosphatase 140 H, Troponin I 0.02, Total Protein 8.7 H, Albumin 5.1 H, Globulin 3.6 H, Albumin/Globulin Ratio 1.4, TSH 2.17, Acetone Level Small 02/25/22 23:07: SARS-CoV-2 (PCR) Not detected, Influenza A Untype (PCR) Not detected, Influenza Type B (PCR) Not detected 02/25/22 23:09: Specimen Source Right radial, O2 % 21, ABG pH 7.05 L*, ABG pCO2 12.0 L, ABG pO2 129.0 H, ABG HCO3 3.3 L, ABG Total CO2 3.6 L, ABG O2 Saturation 98, ABG Base Excess -27.1 L, Mark Test Acceptable 02/25/22 23:45: Lactate 4.8 H 02/25/22 23:54: Urine Color Yellow, Urine Appearance Clear, Urine pH 6.0, Ur Specific [place] >= 1.030, Urine Protein 2+, Urine Glucose (UA) 3+, Urine Ketones 3+, Urine Blood 2+, Urine Nitrate Negative, Urine Bilirubin Negative, Urine Urobilinogen 0.2, Ur Leukocyte Esterase Negative, Urine RBC 3-5, Urine WBC Occasional, Ur Squamous Epith Cells
[2022-02-26 08:52] LABS: POC Glucose,Bedside 291 (70-110)
[2022-02-26 08:52] LABS: POC Glucose,Bedside 209 (70-110)
[2022-02-26 08:52] LABS: POC Glucose,Bedside 165 (70-110)
[2022-02-26 08:52] LABS: POC Glucose,Bedside 248 (70-110)
[2022-02-26 11:27] LABS: POC Glucose,Bedside 116 (70-110)
[2022-02-26 11:27] LABS: POC Glucose,Bedside 113 (70-110)
[2022-02-26 11:27] LABS: POC Glucose,Bedside 107 (70-110)
[2022-02-26 12:20] LABS: Anion Gap 11.3 mEq/L (5-15); Blood Urea Nitrogen 17 mg/dl (7-17); Calcium 7.8 mg/dl (8.4-10.2); Carbon Dioxide 24 mmol/L (22.0-30.0); Chloride 123 mmol/L (98-107); Creatinine Clearance Estimated 44 mL/min (50-200); Estimated Glomerular Filt Rate 121 ml/min (>60); GFR (African American) 147 ML/MIN (>60); Glucose 121 mg/dl (74-100); Potassium 3.3 mmoL/L (3.5-5.1)
[2022-02-26 12:23] LABS: Sodium 155 mmol/L (136-145)
--- NOTE | 2022-02-26 14:10 | HMH.PHAINT1 ---
Pharmacy Intervention Comments: MEDICATION RECONCILIATION COMPLETED ON PATIENT USING EXTERNAL FILL HISTORY FROM PHARMACY AND LIST FROM [facility] OFFICE. -TROY CARVAJALD
[2022-02-26 14:11] LABS: POC Glucose,Bedside 130 (70-110)
[2022-02-26 14:11] LABS: POC Glucose,Bedside 130 (70-110)
[2022-02-26 14:11] LABS: POC Glucose,Bedside 137 (70-110)
[2022-02-26 16:00] LABS: Chloride 122 mmol/L (98-107)
[2022-02-26 16:03] LABS: Blood Urea Nitrogen 15 mg/dl (7-17); Carbon Dioxide 25 mmol/L (22.0-30.0); Creatinine Clearance Estimated 44 mL/min (50-200); Estimated Glomerular Filt Rate 121 ml/min (>60); GFR (African American) 147 ML/MIN (>60)
[2022-02-26 16:04] LABS: Calcium 7.5 mg/dl (8.4-10.2); Glucose 151 mg/dl (74-100)
[2022-02-26 16:05] LABS: Sodium 154 mmol/L (136-145)
[2022-02-26 16:10] LABS: Acetone, Serum (Rapid) None Detected (None Detect)
[2022-02-26 17:39] LABS: POC Glucose,Bedside 167 (70-110)
--- NOTE | 2022-02-26 17:48 | PC.NURSE ---
0800- FSBG 165 insulin drip infusing at 6units/hr 0900- FSBG 113, NO CHANGE 1000- FSBG 107, insulin drip titrated to 1.5units/hr 1100- FSBG 116, NO CHANGE 1200- FSBG 130, NO CHANGE 1300- FSBG 130, NO CHANGE 1400- FSBG 137, NO CHANGE 1500- FSBG 167, NO CHANGE 1600- FSBG 151, NO CHANGE 1700- Anion Gap 10, serum acetone none detected, MD notified, order to stop insulin drip, start medium intensity sliding scale and give 22units lantus
--- NOTE | 2022-02-26 18:50 | PC.NURSE ---
1830-Insulin drip stopped at this time
[2022-02-26 21:27] LABS: POC Glucose,Bedside 124 (70-110)
[2022-02-26 21:56] LABS: Chloride 122 mmol/L (98-107); Potassium 3.1 mmoL/L (3.5-5.1)
[2022-02-26 21:59] LABS: Anion Gap 10.1 mEq/L (5-15); Blood Urea Nitrogen 13 mg/dl (7-17); Calcium 7.8 mg/dl (8.4-10.2); Carbon Dioxide 24 mmol/L (22.0-30.0); Creatinine Clearance Estimated 44 mL/min (50-200); Estimated Glomerular Filt Rate 121 ml/min (>60); GFR (African American) 147 ML/MIN (>60); Glucose 120 mg/dl (74-100)
[2022-02-26 22:11] LABS: Sodium 153 mmol/L (136-145)
[2022-02-27] VITALS (12 sets, daily range): BP systolic 93–125; BP diastolic 48–71; PULSE 70–96; RESP 16–19; TEMP 36.4–37.6; O2SAT 97–100; BMI 19.5
--- NOTE | 2022-02-27 01:39 | PC.NURSE ---
pt able to answer orientation questions this shift, 2099 FS 124, SBP 102-127, HR 81-92, remains on room air with O2 sats 100%, oral care provided, bishop draining clear yellow urine, bed alarm has remained on
[2022-02-27 03:26] LABS: POC Glucose,Bedside 56 (70-110)
--- NOTE | 2022-02-27 05:03 | PC.NURSE ---
Assumed care of her at 0100. She has been asleep t/o the shift. Glucose 56 at 0300 with plans to recheck. She is being turned and repositioned. F/c patent with yellow, clear urine. NSR on telemetry. She continues on RA.
[2022-02-27 05:16] LABS: POC Glucose,Bedside 55 (70-110)
[2022-02-27 06:57] LABS: Basophils % 0.3 % (0.1-2.0); Eosinophils # 0.1 K/mm3 (0.0-0.4); Eosinophils % 0.5 % (0.1-12.0); Hematocrit 34.9 % (37.0-47.0); Hemoglobin 11.7 g/dL (12.2-16.2); Lymphocytes # 1.4 K/mm3 (0.7-4.5); Lymphocytes % 12.2 % (10-50); Mean Corpuscular HGB Conc 33.5 g/dL (31.8-35.4); Mean Corpuscular Hemoglobin 30.2 pg (27.0-31.2); Mean Corpuscular Volume 90.1 fl (81-99); Mean Platelet Volume 8.9 fl (7.4-10.4); Monocytes # 0.7 K/mm3 (0.1-1.0); Monocytes % 5.9 % (1.7-9.3); Neutrophils # 8.9 K/mm3 (1.8-7.8); Neutrophils % 81.1 % (37.0-80.0); Platelet Count 159 K/mm3 (142-424); Red Blood Count 3.87 M/mm3 (4.20-5.40); Red Cell Distribution Width 15.3 % (11.5-17.5)
[2022-02-27 07:03] LABS: Blood Urea Nitrogen 13 mg/dl (7-17); Calcium 7.5 mg/dl (8.4-10.2); Carbon Dioxide 25 mmol/L (22.0-30.0); Chloride 121 mmol/L (98-107); Creatinine Clearance Estimated 45 mL/min (50-200); Estimated Glomerular Filt Rate 157 ml/min (>60); GFR (African American) 190 ML/MIN (>60); Glucose 132 mg/dl (74-100)
[2022-02-27 07:11] LABS: Sodium 152 mmol/L (136-145)
[2022-02-27 07:57] LABS: POC Glucose,Bedside 148 (70-110)
--- NOTE | 2022-02-27 08:10 | EXP.ACUTE.PN ---
Subjective *Date: 02/27/22 *Time: 08:10 Interval history: Patient has improved, she awakens now and nasweres a few questions, no new complaints today. Medical Exam Vital signs and Labs for Last 24 Hours: Vital Signs Temp Pulse Pulse Resp BP Pulse Ox 02/27/22 06:00 79 93/53 L 97 02/27/22 04:00 98.5 F 02/27/22 04:00 70 02/27/22 04:00 81 116/57 L 100 02/27/22 02:11 99 02/27/22 02:00 85 18 104/48 L 99 02/27/22 00:00 90 02/27/22 00:00 99.6 F 87 18 125/63 100 02/26/22 23:00 87 18 108/55 L 100 02/26/22 22:00 76 18 127/48 L 100 02/26/22 21:00 85 17 102/53 L 100 02/26/22 20:00 90 02/26/22 20:30 92 H 100 02/26/22 20:00 98.4 F 81 18 119/64 100 02/26/22 16:00 86 02/26/22 12:00 100 H 02/26/22 16:00 91 H 18 120/58 L 100 02/26/22 12:00 98.8 F 02/26/22 14:00 84 18 133/68 100 02/26/22 13:00 92 H 17 94/50 L 100 02/26/22 12:00 99 H 16 132/67 100 02/26/22 11:00 103 H 18 125/69 100 02/26/22 10:00 99 H 18 115/60 100 02/26/22 09:00 101 H 16 120/66 100 Intake and Output 02/26/22 02/27/22 02/27/22 23:59 07:59 15:59 Intake Total 663 / 2384 1234 / 1234 Output Total 800 / 1300 400 / 400 Balance -137 / 1084 834 / 834 Intake: Intake, Other Amount Intake, Total IV Amount 642 / 2337 1234 / 1234 0.45% NaCl w/20mEq KCL 1,000 ml 884 / 884 @ 75 mls/hr IV .[id number] [facility] Rx #:[id number] Cefepime HCl 2 gm In 0.9 % 100 / 100 100 / 100 Sodium Chloride 100 ml @ 200 mls/hr IV Q12H [facility] Rx#:[id number] D5W/0.9% NaCl w/40mEq KCL 1,000 542 / 542 ml @ 75 mls/hr IV .[id number] [facility] Rx#:[id number] Vancomycin HCl 1,000 mg In 0.9 250 / 250 % Sodium Chloride 250 ml @ 125 mls/hr IV Q24H [facility] Rx#:[id number] Output: Output, Urine Amount 800 / 1300 400 / 400 Other: Intake, Other Source Saline Solution Number of Unmeasured Voids 0 Weight 124 lb 3.2 oz Patient Weight 02/27/22 23:59 Weight 124 lb 3.2 oz Laboratory Results - last 24 hr 02/26/22 04:25: POC Glucose 291 H 02/26/22 05:22: POC Glucose 248 H 02/26/22 05:45: Troponin I 0.04 H 02/26/22 05:45: Acetone Level Large 02/26/22 06:33: POC Glucose 209 H 02/26/22 07:50: Sodium 155 H*, Potassium 3.2 L, Chloride 125 H, Carbon Dioxide 16 L, Anion Gap 17.2 H, BUN 19 H, Creatinine 0.70 D, Estimated Creat Clear 44, Estimated GFR 82, Est GFR ( Amer) 100 D, Glucose 186 H D, Calcium 7.9 L 02/26/22 08:07: POC Glucose 165 H 02/26/22 09:27: POC Glucose 113 H 02/26/22 10:17: POC Glucose 107 02/26/22 11:18: POC Glucose 116 H 02/26/22 12:00: Sodium 155 H*, Potassium 3.3 L, Chloride 123 H, Carbon Dioxide 24, Anion Gap 11.3, BUN 17, Creatinine 0.50 L D, Estimated Creat Clear 44, Estimated GFR 121, Est GFR ( Amer) 147 D, Glucose 121 H D, Calcium 7.8 L 02/26/22 12:11: POC Glucose 130 H 02/26/22 13:26: POC Glucose 130 H 02/26/22 14:05: POC Glucose 137 H 02/26/22 15:06: POC Glucose 167 H 02/26/22 15:48: Sodium 154 H*, Potassium 3.0 L, Chloride 122 H, Carbon Dioxide 25, Anion Gap 10.0, BUN 15, Creatinine 0.50 L, Estimated Creat Clear 44, Estimated GFR 121, Est GFR ( Amer) 147, Glucose 151 H D, Calcium 7.5 L 02/26/22 15:48: Acetone Level None detected 02/26/22 21:20: POC Glucose 124 H 02/26/22 21:39: Sodium 153 H*, Potassium 3.1 L, Chloride 122 H, Carbon Dioxide 24, Anion Gap 10.1, BUN 13, Creatinine 0.50 L, Estimated Creat Clear 44, Estimated GFR 121, Est GFR ( Amer) 147, Glucose 120 H D, Calcium 7.8 L 02/27/22 03:08: POC Glucose 56 L 02/27/22 05:09: POC Glucose 55 L 02/27/22 06:24: WBC 11.0 H D, RBC 3.87 L D, Hgb 11.7 L, Hct 34.9 L, MCV 90.1, MCH 30.2, MCHC 33.5, RDW 15.3, Plt Count 159 D, MPV 8.9, Neut % (Auto) 81.1 H, Lymph % (Auto) 12.2, [place] % (Auto) 5.9, Eos % (Auto) 0.5, Baso % (Auto) 0.3, Neut # (Auto) 8.9 H, Lymph # (Auto) 1.4, [place] # (Aut
[2022-02-27 12:22] LABS: POC Glucose,Bedside 241 (70-110)
[2022-02-27 17:12] LABS: POC Glucose,Bedside 156 (70-110)
--- NOTE | 2022-02-27 19:23 | PC.NURSE ---
Spoke to Clay at [facility] regarding pt's IV infiltrating. Clay stated to elevate extremity and place warm compresses for 20 min q6h. Orders received and carried out.
[2022-02-27 20:25] LABS: POC Glucose,Bedside 173 (70-110)
[2022-02-27 22:47] LABS: Vancomycin,Trough 9.7 ug/mL (5.0-10.0)
--- NOTE | 2022-02-27 22:54 | PC.NURSE ---
She is A&Ox4. She has been sleeping intermittently. She did receive a bed bath and linen change. F/c patent with yellow, clear urine. Some leakage noted and will continue to monitor. Currently awaiting results from [facility]. Bed alarm set and call light within reach. 1+ non-pitting edema to BUE. She denies pain. NSR with artifact on telemetry.
[2022-02-28] VITALS (10 sets, daily range): BP systolic 90–149; BP diastolic 56–94; PULSE 70–110; RESP 16–18; TEMP 36.4–37.3; O2SAT 98–100; BMI 20.1
[2022-02-28 05:03] LABS: POC Glucose,Bedside 106 (70-110)
[2022-02-28 06:43] LABS: Basophils # 0.1 K/mm3 (0-0.2); Basophils % 0.6 % (0.1-2.0); Eosinophils # 0.2 K/mm3 (0.0-0.4); Hematocrit 38.1 % (37.0-47.0); Hemoglobin 12.2 g/dL (12.2-16.2); Lymphocytes # 1.9 K/mm3 (0.7-4.5); Lymphocytes % 26.7 % (10-50); Mean Corpuscular HGB Conc 32.1 g/dL (31.8-35.4); Mean Corpuscular Hemoglobin 29.4 pg (27.0-31.2); Mean Corpuscular Volume 91.6 fl (81-99); Mean Platelet Volume 8.7 fl (7.4-10.4); Monocytes # 0.4 K/mm3 (0.1-1.0); Monocytes % 5.4 % (1.7-9.3); Neutrophils # 4.7 K/mm3 (1.8-7.8); Neutrophils % 65.2 % (37.0-80.0); Platelet Count 144 K/mm3 (142-424); Red Blood Count 4.16 M/mm3 (4.20-5.40); Red Cell Distribution Width 15.4 % (11.5-17.5); White Blood Count 7.2 K/mm3 (4.8-10.8)
[2022-02-28 06:51] LABS: Anion Gap 5.1 mEq/L (5-15); Blood Urea Nitrogen 5 mg/dl (7-17); Carbon Dioxide 28 mmol/L (22.0-30.0); Chloride 111 mmol/L (98-107); Creatinine Clearance Estimated 47 mL/min (50-200); Estimated Glomerular Filt Rate 219 ml/min (>60); GFR (African American) 265 ML/MIN (>60); Glucose 129 mg/dl (74-100); Potassium 3.1 mmoL/L (3.5-5.1); Sodium 141 mmol/L (136-145)
--- NOTE | 2022-02-28 07:05 | EXP.ACUTE.PN ---
Subjective *Date: 02/28/22 *Time: 07:05 Interval history: Patient states she feels better today, would like something to eat. Medical Exam Vital signs and Labs for Last 24 Hours: Vital Signs Temp Pulse Pulse Resp BP Pulse Ox 02/28/22 06:00 90 17 114/62 100 02/28/22 04:00 97.8 F 02/28/22 04:00 80 02/28/22 04:00 78 18 90/56 L 99 02/28/22 02:00 80 18 107/60 L 98 02/28/22 00:00 98.2 F 02/28/22 00:27 99 02/28/22 00:00 84 17 101/59 L 99 02/28/22 00:00 90 02/27/22 20:00 100 02/27/22 20:00 90 02/27/22 20:00 95 H 17 123/71 100 02/27/22 22:00 87 16 107/65 L 100 02/27/22 20:00 98.0 F 02/27/22 16:00 90 02/27/22 18:00 96 H 19 124/68 100 02/27/22 16:00 87 116/60 100 02/27/22 14:00 96 H 18 112/64 100 02/27/22 12:00 99.0 F 02/27/22 12:00 94 H Intake and Output 02/27/22 02/27/22 02/28/22 15:59 23:59 06:59 Intake Total 360 / 1954 360 / 1954 184 / 1847 Output Total 500 / 900 0 / 900 300 / 300 Balance -140 / 1054 360 / 1054 1547 / 1547 Intake: Intake, Oral Amount 360 / 720 360 / 720 Intake, Total IV Amount 1846 / 1846 D5W/0.45% NaCl w/40mEq KCl 1, 1597 / 1597 000 ml @ 100 mls/hr IV .Q10H [facility] Rx#:[id number] Vancomycin HCl 1,000 mg In 0.9 250 / 250 % Sodium Chloride 250 ml @ 125 mls/hr IV Q24H [facility] Rx#:[id number] Output: Output, Urine Amount 500 / 900 0 / 900 0 / 0 Output, Urine Amount (Catheter) 300 / 300 [place] 300 / 300 Other: Number of Unmeasured Voids 0 Weight 124 lb 3.194 oz 128 lb 3 oz Patient Weight 02/28/22 22:59 Weight 128 lb 3 oz Laboratory Results - last 24 hr 02/27/22 11:59: POC Glucose 241 H 02/27/22 16:54: POC Glucose 156 H 02/27/22 19:53: POC Glucose 173 H 02/27/22 21:15: Vancomycin Trough 9.7 02/28/22 01:45 EST: Vancomycin Peak 18.0 02/28/22 04:56: POC Glucose 106 02/28/22 06:30: WBC 7.2 D, RBC 4.16 L, Hgb 12.2, Hct 38.1, MCV 91.6, MCH 29.4, MCHC 32.1, RDW 15.4, Plt Count 144, MPV 8.7, Neut % (Auto) 65.2, Lymph % (Auto) 26.7, [place] % (Auto) 5.4, Eos % (Auto) 2.0, Baso % (Auto) 0.6, Neut # (Auto) 4.7, Lymph # (Auto) 1.9, [place] # (Auto) 0.4, Eos # (Auto) 0.2, Baso # (Auto) 0.1 02/28/22 06:30: Sodium 141, Potassium 3.1 L, Chloride 111 H, Carbon Dioxide 28, Anion Gap 5.1, BUN 5 L D, Creatinine 0.30 L D, Estimated Creat Clear 47, Estimated GFR 219, Est GFR ( Amer) 265 D, Glucose 129 H, Calcium 7.0 L I & O for Labs for Last 24 Hours: Intake & Output 02/25/22 02/26/22 02/27/22 02/28/22 23:59 23:59 23:59 22:59 Intake Total 2384 / 2384 1954 / 1954 1847 / 1847 Output Total 1300 / 1300 900 / 900 300 / 300 Balance 1084 / 1084 1054 / 1054 1547 / 1547 Weight 130 lb 119 lb 7.849 oz 124 lb 3.194 oz 128 lb 3 oz Microbiology Reports for the Last 24 Hours: Microbiology 02/26/22 00:05 Blood Blood Culture - Preliminary NO GROWTH AFTER 48 HOURS 02/26/22 00:05 Blood Blood Culture - Preliminary NO GROWTH AFTER 48 HOURS Constitutional: Present no acute distress Respiratory: Present normal respiratory effort Cardiac: Present Reg Rate and Rhythm GI: Present normal bowel sounds; Absent tenderness Extremities: Present normal inspection and full ROM Neuro: Present alert Assessment and Plan *Assessment and plan (1) Septic shock: Status: Acute Category: Medical Code(s): A41.9 - Sepsis, unspecified organism; R65.21 - Severe sepsis with septic shock (2) Gastritis: Status: Acute Category: Medical Code(s): K29.70 - Gastritis, unspecified, without bleeding (3) Leukocytosis: Status: Acute Category: Medical Code(s): D72.829 - Elevated white blood cell count, unspecified (4) DKA (diabetic ketoacidosis): Status: Acute Category: Medical Code(s): E11.10 - Type 2 diabete
--- NOTE | 2022-02-28 10:40 | EXP.PHA.CONS ---
Pharmacy Consult Date: 02/28/22 Time: 10:40 Referring provider: DR SHAHID Reason for Consult:: VANCOMYCIN DOSE ADJUSTMENT BASED ON PK LEVELS Allergies Allergy/AdvReac Type Severity Reaction Status Date / Time No Known Allergies Allergy Verified 02/26/22 06:11 Home Medications Medication Instructions Recorded Confirmed Type calcium carbonate 500 mg calcium 500 mg PO TID Supplement 10/10/18 02/26/22 History (1,250 mg) tablet glucosamine sulfate 2KCl 1,000 mg 1,000 mg PO DAILY Supplement 10/10/18 02/26/22 History tablet hkzervnoygmh-Co-pmfq-minerals 1 each PO DAILY Supplement 10/15/19 02/26/22 History glipizide 2.5 mg-metformin 500 mg 1 tab PO BID Diabetes 02/26/22 02/26/22 History tablet mirtazapine 15 mg tablet 15 mg PO HS sleep 02/26/22 02/26/22 History omeprazole 40 mg capsule,delayed 40 mg PO DAILY GERD 02/26/22 02/26/22 History release New Prescriptions to Start Prescriptions: Height: 1.7 m Weight: 58.145 kg Laboratory Results:: Laboratory Results - last 24 hr 02/27/22 11:59: POC Glucose 241 H 02/27/22 16:54: POC Glucose 156 H 02/27/22 19:53: POC Glucose 173 H 02/27/22 21:15: Vancomycin Trough 9.7 02/28/22 01:45 EST: Vancomycin Peak 18.0 02/28/22 04:56: POC Glucose 106 02/28/22 06:30: WBC 7.2 D, RBC 4.16 L, Hgb 12.2, Hct 38.1, MCV 91.6, MCH 29.4, MCHC 32.1, RDW 15.4, Plt Count 144, MPV 8.7, Neut % (Auto) 65.2, Lymph % (Auto) 26.7, [place] % (Auto) 5.4, Eos % (Auto) 2.0, Baso % (Auto) 0.6, Neut # (Auto) 4.7, Lymph # (Auto) 1.9, [place] # (Auto) 0.4, Eos # (Auto) 0.2, Baso # (Auto) 0.1 02/28/22 06:30: Sodium 141, Potassium 3.1 L, Chloride 111 H, Carbon Dioxide 28, Anion Gap 5.1, BUN 5 L D, Creatinine 0.30 L D, Estimated Creat Clear 47, Estimated GFR 219, Est GFR ( Amer) 265 D, Glucose 129 H, Calcium 7.0 L Medical History: Medical History (Updated 02/26/22 @ 08:52 by Iraj Shahid MD) Diabetes mellitus, type 2 Heartburn Osteoporosis Assessment and Plan Assessment and plan all Dx Assessment and Plan for all problems:: Pharmacokinetic dosing service Weight: 58.145 Kilograms Vancomycin single level analysis: Current dose being given: 1000 mg Current dosing interval: 24 hrs Current infusion time (hrs): 2 Single level Trough Data: Trough level obtained: 9.7 mcg/ml Timing of trough - # of hrs before next dose: 0.5 Hrs Desired peak: 35 mcg/ml Desired trough: 12.5 mcg/ml Estimated PK Parameters: New rate constant (sona): 0.054 hr-1 Half-life: 12.84 Hours Vd from levels: 40.70 Liters (0.7 L/kg) CLvanco=?? 2.198 L/hr Estimated New Dose and Interval Recommended dose: 1021.9 mg Recommended interval: 21.1 Hrs Recommendations: Give Vancomycin 1250 mg q 24 hrs TO START 02/28/22 AT 22:00. Infuse over 2 hrs Expected Cpeak: 40.1 mcg/mL Expected Ctrough: 12.2 mcg/mL AUC 0-24 /CATINA Data: CATINA 0.5 mcg/mL:?? AUC/CATINA:? 1137.4 CATINA 1.0 mcg/mL:?? AUC/CATINA:? 568.7 Thank you for the consult
[2022-02-28 11:05] LABS: POC Glucose,Bedside 300 (70-110)
[2022-02-28 14:04] LABS: POC Glucose,Bedside 312 (70-110)
--- NOTE | 2022-02-28 18:25 | PC.NURSE ---
VS stable and pt remained on room air during shift. No complaints noted. Blood sugars 300. 319, and 290. Insulin given and pt tolerated well. Diet tolerated well.
[2022-02-28 19:21] LABS: POC Glucose,Bedside 290 (70-110)
[2022-02-28 21:48] LABS: POC Glucose,Bedside 193 (70-110)
[2022-03-01] VITALS (8 sets, daily range): BP systolic 103–151; BP diastolic 60–86; PULSE 80–127; RESP 16; TEMP 36.7–37.1; O2SAT 92–99; BMI 19.9
--- NOTE | 2022-03-01 04:43 | PC.NURSE ---
pt rested well, no changes from previous assessment, pt at bedside at beginning of shift with alot of questions and concerns about after care, diabetes education printed out and given to to read, he stated he had to work for the doctor and nutrionalist to call him, number written on whiteboard in room, f/c to bsd with clear yellow urine noted, skin pwd without edema, pt is alert and oriented x4, vss, fsbs 193, no other issues or concerns at this time.
[2022-03-01 05:49] LABS: Basophils # 0.1 K/mm3 (0-0.2); Basophils % 0.8 % (0.1-2.0); Eosinophils # 0.1 K/mm3 (0.0-0.4); Eosinophils % 2.1 % (0.1-12.0); Hematocrit 35.4 % (37.0-47.0); Hemoglobin 12.1 g/dL (12.2-16.2); Lymphocytes # 1.9 K/mm3 (0.7-4.5); Lymphocytes % 29.6 % (10-50); Mean Corpuscular HGB Conc 34.3 g/dL (31.8-35.4); Mean Corpuscular Hemoglobin 29.8 pg (27.0-31.2); Mean Corpuscular Volume 86.9 fl (81-99); Mean Platelet Volume 8.7 fl (7.4-10.4); Monocytes # 0.3 K/mm3 (0.1-1.0); Monocytes % 4.9 % (1.7-9.3); Neutrophils % 62.6 % (37.0-80.0); Platelet Count 151 K/mm3 (142-424); Red Blood Count 4.08 M/mm3 (4.20-5.40); Red Cell Distribution Width 15.4 % (11.5-17.5); White Blood Count 6.4 K/mm3 (4.8-10.8)
[2022-03-01 06:01] LABS: Anion Gap 5.9 mEq/L (5-15); Blood Urea Nitrogen 6 mg/dl (7-17); Calcium 7.4 mg/dl (8.4-10.2); Carbon Dioxide 30 mmol/L (22.0-30.0); Chloride 105 mmol/L (98-107); Creatinine Clearance Estimated 46 mL/min (50-200); Estimated Glomerular Filt Rate 219 ml/min (>60); GFR (African American) 265 ML/MIN (>60); Potassium 3.9 mmoL/L (3.5-5.1); Sodium 137 mmol/L (136-145)
[2022-03-01 06:02] LABS: Glucose 223 mg/dl (74-100)
[2022-03-01 06:22] LABS: POC Glucose,Bedside 196 (70-110)
--- NOTE | 2022-03-01 08:15 | EXP.PN ---
Subjective *Date: 03/01/22 *Time: 08:55 Interval history: Patient states she is better today. She did sleep. She is eating her breakfast. She denies chest pain and shortness of breath. Exam Data for Last 24 hours Vital signs and Labs for Last 24 Hours: Temp Pulse Resp BP Pulse Ox 98.5 F 85 16 120/63 98 03/01/22 03:53 03/01/22 04:00 03/01/22 03:53 03/01/22 03:53 03/01/22 03:53 Laboratory Results - last 24 hr 02/28/22 10:56: POC Glucose 300 H 02/28/22 13:47: POC Glucose 312 H* 02/28/22 16:59: POC Glucose 290 H 02/28/22 20:51: POC Glucose 193 H 03/01/22 05:31: WBC 6.4, RBC 4.08 L, Hgb 12.1 L, Hct 35.4 L, MCV 86.9, MCH 29.8, MCHC 34.3, RDW 15.4, Plt Count 151, MPV 8.7, Neut % (Auto) 62.6, Lymph % (Auto) 29.6, [place] % (Auto) 4.9, Eos % (Auto) 2.1, Baso % (Auto) 0.8, Neut # (Auto) 4.0, Lymph # (Auto) 1.9, [place] # (Auto) 0.3, Eos # (Auto) 0.1, Baso # (Auto) 0.1 03/01/22 05:31: Sodium 137, Potassium 3.9 D, Chloride 105, Carbon Dioxide 30, Anion Gap 5.9, BUN 6 L, Creatinine 0.30 L, Estimated Creat Clear 46, Estimated GFR 219, Est GFR ( Amer) 265, Glucose 223 H D, Calcium 7.4 L 03/01/22 06:00: POC Glucose 196 H I & O for Last 24 hours: Intake & Output 02/26/22 02/27/22 02/28/22 03/01/22 12:59 12:59 11:59 11:59 Intake Total 4469 / 4469 Output Total 3680 / 3680 Balance 789 / 789 Weight 127 lb Constitutional Constitutional: no acute distress Comments: Sitting in chair at bedside eating her breakfast. Appears comfortable. Respiratory effort is easy *Routine Respiratory Exam Respiratory: Present crackles (Posteriorly) *Routine Cardiovascular Exam Cardiovascular: Present RRR *Routine Abdominal Exam Abdominal: Present soft and normoactive bowel sounds; Absent tenderness *Routine Extremities Exam Extremities: Absent edema or calf tenderness *Routine Neurological Exam Neurological: Present alert and oriented X3 Assessment and Plan *Assessment and plan (1) Septic shock: Status: Acute Category: Medical Code(s): A41.9 - Sepsis, unspecified organism; R65.21 - Severe sepsis with septic shock (2) Gastritis: Status: Acute Category: Medical Code(s): K29.70 - Gastritis, unspecified, without bleeding (3) Leukocytosis: Status: Acute Category: Medical Code(s): D72.829 - Elevated white blood cell count, unspecified (4) DKA (diabetic ketoacidosis): Status: Acute Category: Medical Code(s): E11.10 - Type 2 diabetes mellitus with ketoacidosis without coma (5) Sepsis: Status: Acute Category: Medical Code(s): A41.9 - Sepsis, unspecified organism (6) Hypokalemia: Status: Acute Category: Medical Code(s): E87.6 - Hypokalemia (7) Elevated lactic acid level: Status: Acute Category: Medical Code(s): R79.89 - Other specified abnormal findings of blood chemistry (8) Hypotension: Status: Acute Category: Medical Code(s): I95.9 - Hypotension, unspecified (9) AMS (altered mental status): Status: Acute Category: Medical Code(s): R41.82 - Altered mental status, unspecified Plan Patient is tolerating diet. Blood cultures remain negative. Physical therapy consult. Probably home today with Lantus and close follow-up. Dr. Shahid entry - PT and dietary to see patient today. She has improved, should be ready for discharge soon.
--- NOTE | 2022-03-01 08:57 | DIET.NUTRFU ---
Addendum entered by Wilma Rajan RD, LD 03/01/22 10:48: attempted to call had to leave message with contact information. Will also be available for questions upon discharge tomorrow Original Note: RD consulted to educate patient on diabetic diet. Her primary language is Slovak, provided and review diabetic handouts printed in Slovak. She also requested I call her and review diet plan. Will call today and he is picking her up for discharge home tomorrow, will address additional questions at that time.
--- NOTE | 2022-03-01 10:45 | P.PN_ITS ---
Subjective *Date: 03/01/22 *Time: 10:45 Medical Exam Vital signs and Labs for Last 24 Hours: Vital Signs Temp Pulse Pulse Resp BP Pulse Ox 03/01/22 08:00 98.1 F 105 H 16 107/70 L 99 03/01/22 08:00 92 L 03/01/22 04:00 85 03/01/22 04:00 85 03/01/22 03:53 98.5 F 85 16 120/63 98 03/01/22 00:00 80 02/28/22 23:54 99.2 F 93 H 17 125/75 99 02/28/22 20:00 98 02/28/22 20:00 80 02/28/22 20:00 97.5 F L 110 H 18 149/94 H 98 02/28/22 16:00 90 02/28/22 12:00 100 H 02/28/22 16:00 98.5 F 94 H 16 123/66 100 02/28/22 12:00 98.4 F 95 H 16 110/70 100 Intake and Output 02/28/22 03/01/22 03/01/22 23:59 07:59 15:59 Intake Total 360 / 6676 2349 / 2589 240 / 2589 Output Total 1280 / 2780 1200 / 1650 450 / 1650 Balance -920 / 3896 1149 / 939 -210 / 939 Intake: Intake, Oral Amount 360 / 2480 240 / 240 Intake, Total IV Amount 2349 / 2349 Cefepime HCl 2 gm In 0.9 % 100 / 100 Sodium Chloride 100 ml @ 200 mls/hr IV Q12H [facility] Rx#:[id number] D5W/0.45% NaCl w/40mEq KCl 1998 / 1998 000 ml @ 100 mls/hr IV .Q10H [facility] Rx#:[id number] Vancomycin/Water For Inj (Peg) 250 / 250 1.25 gm In 250 ml @ 125 mls/hr IV Q24H [facility] Rx#:[id number] Output: Output, Urine Amount 1280 / 2480 1200 / 1650 450 / 1650 Other: Number of Unmeasured Voids 0 0 0 Number of Bowel Movements 1 Weight 57.606 kg Patient Weight 03/01/22 23:59 Weight 57.606 kg Laboratory Results - last 24 hr 02/28/22 10:56: POC Glucose 300 H 02/28/22 13:47: POC Glucose 312 H* 02/28/22 16:59: POC Glucose 290 H 02/28/22 20:51: POC Glucose 193 H 03/01/22 05:31: WBC 6.4, RBC 4.08 L, Hgb 12.1 L, Hct 35.4 L, MCV 86.9, MCH 29.8, MCHC 34.3, RDW 15.4, Plt Count 151, MPV 8.7, Neut % (Auto) 62.6, Lymph % (Auto) 29.6, [place] % (Auto) 4.9, Eos % (Auto) 2.1, Baso % (Auto) 0.8, Neut # (Auto) 4.0, Lymph # (Auto) 1.9, [place] # (Auto) 0.3, Eos # (Auto) 0.1, Baso # (Auto) 0.1 03/01/22 05:31: Sodium 137, Potassium 3.9 D, Chloride 105, Carbon Dioxide 30, Anion Gap 5.9, BUN 6 L, Creatinine 0.30 L, Estimated Creat Clear 46, Estimated GFR 219, Est GFR ( Amer) 265, Glucose 223 H D, Calcium 7.4 L 03/01/22 06:00: POC Glucose 196 H I & O for Labs for Last 24 Hours: Intake & Output 02/27/22 02/28/22 02/28/22 03/01/22 00:59 00:59 23:59 23:59 Intake Total 2589 / 2589 Output Total 1650 / 1650 Balance 939 / 939 Weight 57.606 kg The patient's infection will respond to the chosen ABx?: Yes Is the patient receiving the right drug, dose, and route?: Yes Could a more targeted ABx be ordered?: No
[2022-03-01 12:12] LABS: POC Glucose,Bedside 281 (70-110)
[2022-03-01 15:48] LABS: POC Glucose,Bedside 210 (70-110)
[2022-03-01 17:03] LABS: POC Glucose,Bedside 238 (70-110)
--- NOTE | 2022-03-01 18:14 | PC.NURSE ---
pt had 3 unmeasured voids
--- NOTE | 2022-03-01 18:21 | PC.NURSE ---
in total pt has had 3 unmeasured voids since catheter was d/c. Pt has also had a total of 2 bowel movements. Annabel Ramos SRNA
--- NOTE | 2022-03-01 19:17 | PC.NURSE ---
Pt is A/Ox4. She has been up to the chair all day. She has tolerated her diet well. She has ambulated to the bathroom multiple times with assist x1. Took at [facility] was voids afterwards. She had a small BM today. She has not current complaints or needs.
[2022-03-01 20:29] LABS: POC Glucose,Bedside 170 (70-110)
[2022-03-02] VITALS: BP 122/78; PULSE 103; PULSE 130; RESP 16; TEMP 36.8; O2SAT 98
[2022-03-02 04:00] VITALS: BP 122/67; PULSE 80; PULSE 92; RESP 16; TEMP 36.7; O2SAT 97
[2022-03-02 05:00] VITALS: BMI 20.4
--- NOTE | 2022-03-02 05:18 | PC.NURSE ---
pt a&oX4. has had no complaints this shift. she has ambulated to bathroom independently.
[2022-03-02 06:34] LABS: POC Glucose,Bedside 64 (70-110)
[2022-03-02 07:38] VITALS: BP 157/77; PULSE 96; RESP 16; TEMP 36.6; O2SAT 99
[2022-03-02 08:00] VITALS: PULSE 90
--- NOTE | 2022-03-02 08:10 | EXP.PN ---
Subjective *Date: 03/02/22 *Time: 08:40 Interval history: Patient states she feels good. She has been up to the bathroom independently without problems.She is eating well. Dietary has seen her and discussed her diet.She states she is going home in an hour. Low blood sugar this morning at 64 Exam Data for Last 24 hours Vital signs and Labs for Last 24 Hours: Temp Pulse Resp BP Pulse Ox 97.9 F 96 H 16 157/77 H 99 03/02/22 07:38 03/02/22 07:38 03/02/22 07:38 03/02/22 07:38 03/02/22 07:38 Laboratory Results - last 24 hr 03/01/22 12:05: POC Glucose 281 H 03/01/22 15:40: POC Glucose 210 H 03/01/22 16:56: POC Glucose 238 H 03/01/22 20:21: POC Glucose 170 H 03/02/22 06:26: POC Glucose 64 L I & O for Last 24 hours: Intake & Output 02/27/22 02/28/22 03/01/22 03/02/22 12:59 11:59 11:59 11:59 Intake Total 4709 / 4709 600 / 600 Output Total 4130 / 4130 800 / 800 Balance 579 / 579 -200 / -200 Weight 127 lb 130 lb 5 oz Constitutional Constitutional: no acute distress (Sitting up in the bed eating her breakfast. ) *Routine Respiratory Exam Respiratory: Present CTA bilaterally (Anteriorly and posteriorly) *Routine Cardiovascular Exam Cardiovascular: Present RRR *Routine Abdominal Exam Abdominal: Present soft and normoactive bowel sounds *Routine Extremities Exam Extremities: Absent edema or calf tenderness *Routine Neurological Exam Neurological: Present alert and oriented X3 Assessment and Plan *Assessment and plan (1) Septic shock: Status: Acute Category: Medical Code(s): A41.9 - Sepsis, unspecified organism; R65.21 - Severe sepsis with septic shock (2) Gastritis: Status: Acute Category: Medical Code(s): K29.70 - Gastritis, unspecified, without bleeding (3) Leukocytosis: Status: Acute Category: Medical Code(s): D72.829 - Elevated white blood cell count, unspecified (4) DKA (diabetic ketoacidosis): Status: Acute Category: Medical Code(s): E11.10 - Type 2 diabetes mellitus with ketoacidosis without coma (5) Sepsis: Status: Acute Category: Medical Code(s): A41.9 - Sepsis, unspecified organism (6) Hypokalemia: Status: Acute Category: Medical Code(s): E87.6 - Hypokalemia (7) Elevated lactic acid level: Status: Acute Category: Medical Code(s): R79.89 - Other specified abnormal findings of blood chemistry (8) Diabetes mellitus: Status: Acute Category: Medical Code(s): E11.9 - Type 2 diabetes mellitus without complications Plan Discharged home today.Home on Metformin Dr. Shahid entry - Saw patient, OK for discharge home today, no insulin to be given now, will have pt monitor blood glucose and f/u with Dr. Bran in 1 week.
--- NOTE | 2022-03-02 09:30 | HMH.PHAINT1 ---
Pharmacy Intervention Comments: Discharge counseling completed at bedside with patient. Discussed continuation of home medications and explained the patient is not being sent home on any new medications. Patient verbalized understanding and does not have any questions related to current medication regimen at this time. Instructed to follow up with pharmacy if needed for further questions.
--- NOTE | 2022-03-02 09:40 | PC.NURSE ---
late entry- 0915 d/c teaching completed, pt awaiting transport at this time
--- NOTE | 2022-03-02 10:57 | DIET.NUTRFU ---
Spoke to and patient about diabetic diet upon discharge, reviewed handouts and provided meal examples. Provide contact information and encouarged follow-up appt.
--- NOTE | 2022-03-03 12:45 | CARE MANAGER ---
Called and spoke with Mr. Hernandez Marcelle's spouse. He states that patient is doing well, has had sugars of just over 300. He states that he has been doing FSBS after meals. I educated on importance of checking sugar prior to meals and keeping a record to take with them to f/u appt. I advised them to fill out survey, if one is received. No known concerns or complaints at time of call.
--- NOTE | 2022-03-08 14:56 | EXP.DC.SUM ---
General Admission date:: 02/26/22 Discharge date: 03/02/22 HPI HPI HPI: 71 year old patient of [facility], who saw Dr. Bran in the office earlier this week and was diagnosed with diabetes. Her blood sugar was 500 in the office that day and she was prescribed Glipizide and Metformin. She states she took one dose and started vomiting along with hallucinating and became very confused. She has had a 2 week history of nausea/vomiting and weight loss. History was obtained from ER note/patient's . Hospital Course Hospital Course Hospital Course: The patient was admitted for management of DKA and apparent septic shock. She was started on DKA protocol as well as vancomycin and Zosyn empirically. She was started on an epinephrine drip due to hypotension. The epinephrine drip was weaned and she was started on cefepime. Her potassium was replaced. Her blood pressure and labs began improving. She was weaned off of all drips. Her potassium was still low and had to be replaced and her IV fluids were changed. She was started on a clear liquid diet. She tolerated this well and wanted more to eat. Her diet was advanced and she was transferred out of stepdown. Her blood cultures were negative. Physical therapy was consulted as was dietary. By 03/02/2022 she had been up to the bathroom independently without problems and was eating well. Dietary had seen the patient and discussed her diet. She was stable to be discharged home with a glucose monitor and will follow-up in [address] Bran. Exam Data for Last 24 hours Vital signs and Labs for Last 24 Hours: Temp Pulse Resp BP Pulse Ox 97.9 F 90 16 157/77 H 99 03/02/22 07:38 03/02/22 08:00 03/02/22 07:38 03/02/22 07:38 03/02/22 07:38 Narrative: Constitutional Constitutional: somnolent *Routine HEENT Exam Head: Present normocephalic Eye: Present EOMI and PERRL ENT: Present mucous membranes moist *Routine Neck Exam Neck: Present supple; Absent lymphadenopathy *Routine Respiratory Exam Respiratory: Present CTA bilaterally *Routine Cardiovascular Exam Cardiovascular: Present tachycardia *Routine Abdominal Exam Abdominal: Present soft and normoactive bowel sounds; Absent tenderness *Routine Rectal Exam Rectal:: deferred *Routine Genitalia Exam Genitalia:: deferred *Routine Extremities Exam Extremities: Absent cyanosis, clubbing or edema *Routine Skin Exam Skin: Present warm; Absent rash *Routine Neurological Exam Comments: patient is somnolent this morning. DS: Diagnosis Discharge Diagnosis (1) Septic shock: Status: Acute (2) Gastritis: Status: Acute (3) Leukocytosis: Status: Acute (4) DKA (diabetic ketoacidosis): Status: Acute (5) Sepsis: Status: Acute (6) Hypokalemia: Status: Acute (7) Elevated lactic acid level: Status: Acute (8) Diabetes mellitus: Status: Acute Meds Home Medications and Allergies Home Medications Medication Instructions Recorded Confirmed Type calcium carbonate 500 mg calcium 500 mg PO TID Supplement 10/10/18 02/26/22 History (1,250 mg) tablet glucosamine sulfate 2KCl 1,000 mg 1,000 mg PO DAILY Supplement 10/10/18 02/26/22 History tablet loxahhlozeov-Vh-amxm-minerals 1 each PO DAILY Supplement 10/15/19 02/26/22 History glipizide 2.5 mg-metformin 500 mg 1 tab PO BID Diabetes 02/26/22 02/26/22 History tablet mirtazapine 15 mg tablet 15 mg PO HS sleep 02/26/22 02/26/22 History omeprazole 40 mg capsule,delayed 40 mg PO DAILY GERD 02/26/22 02/26/22 History release New Prescriptions to Start Prescriptions: Allergies Allergy/AdvReac Type Severity Reaction Status Date / Time No Known Allergies Allergy Verified 02/26/22 06:11 Discharge Plan Disposition Patient Disposition: Home, Self-Care Condition: Fair Discharge Order Discharge Orders: Discharge Order (Routine); Ordered 03/02/22 Ordered By: Iraj Shahid
== END 2022-03-02 11:30 | disposition home or self-care (01) | DRG 871 ==
LOC: ER 23:45 → 2ND 02-26 02:25
PROVIDERS: Family Medicine; Admitting Provider Family Medicine; Emergency Provider Student in an Organized Health Care Education/Training Program; PCP Family Medicine; Visit Provider Family Medicine
DX: A41.9 Sepsis, unspecified organism (principal); E11.10 Type 2 diabetes mellitus with ketoacidosis without coma; R65.21 Severe sepsis with septic shock; E87.6 Hypokalemia; K29.70 Gastritis, unspecified, without bleeding; Z79.4 Long term (current) use of insulin
CPT/HCPCS: 36415; 51702; 70450; 71260; 74177; 80048; 80053; 80202; 80305; 81001; 82009; 82803; 82962; 83605; 84443; 84484; 85007; 85025; 87040; 93005; 97116; 97162; 99291; C9803; J2543; J3370; Q9967; U0003; U0005

== ENCOUNTER → 2022-06-24 11:51 | Outpatient (CLI) | payer MEDICARE, SELFPAY ==
[2022-06-24 12:50] VITALS: BMI 20.7
== END ==
PROVIDERS: PCP Family Medicine; Visit Provider Family Medicine
DX: Z71.3 Dietary counseling and surveillance (principal); E11.9 Type 2 diabetes mellitus without complications
CPT/HCPCS: 97802